=== PATIENT | male | born 1965 | race Caucasian/White ===

== ENCOUNTER 2016-02-22 07:30 | Inpatient (IN) | payer BC, MEDICARE ==
[~2016-02-22] VITALS: Ht 177.8 cm; Wt 88.0 kg
[~2016-02-22 07:30] MED LIST: AMAN100C12 PO; HC1C1.5 TP; LAMO150T PO; MUPI15CR TP; ONDA4 PO; SULF1TAB42 PO
[2016-02-22] MEDS ORDERED: DOCU250C91 PO (11:03)
[2016-02-22] MEDS ORDERED: SENN-30 PO (11:04)
[2016-02-22] MEDS ORDERED: ACET-784 PO (11:06)
[2016-02-22] MEDS ORDERED: DIPH25 PO (11:07)
[2016-02-22] MEDS ORDERED: MELA3TAB10 PO (11:08)
[2016-02-22] MEDS ORDERED: PERCT PO (11:09)
[2016-02-22] MEDS ORDERED: DOCU283E PR (11:15)
[2016-02-22] MEDS ORDERED: CeFAZolin 2 GM/DEXTROSE 50 ML IV ONE ×2 (11:30→11:33)
[2016-02-22] MEDS ORDERED: SODIUM CHLORIDE 0.9% 1,000 ML IV ONE (11:30)
[2016-02-22] MEDS ORDERED: RINGERS SOLUTION,LACTATED 1,000 ML IV ONE ×3 (11:30→13:00)
[2016-02-22] MEDS ORDERED: GUM MASTIC/STORAX/MSAL/ALCOHOL LIQUID 0.67 ML VIAL TP ONE (11:30)
[2016-02-22] MEDS ORDERED: MICROFIBRILLAR COLLAGEN 1 GM PACKAGE TP ONE (11:31)
[2016-02-22] MEDS ORDERED: SODIUM CHLORIDE 0.9% 0 ML IV ONE (11:31)
[2016-02-22] MEDS ORDERED: SODIUM CHLORIDE 0.9% 0 ML ONE (11:31)
[2016-02-22] MEDS ORDERED: BUPIVACAINE HCL/PF 0.5% 30 ML VIAL ONE (11:31)
[2016-02-22] MEDS ORDERED: MUPIROCIN CALCIUM 2% 22 GM OINTMENT ONE (12:21)
[2016-02-22 12:57] LABS: GLUCOSE,POINT OF CARE 99 MG/DL (70-110)
[2016-02-22] MEDS ORDERED: HYDROmorphone 2 MG/ML SYRINGE IVP PRN (13:30)
[2016-02-22] MEDS ORDERED: MEPERIDINE-PF 25 MG/ML SYRINGE IVP PRN (13:30)
[2016-02-22] MEDS ORDERED: FentaNYL CITRATE-PF 100 MCG/2 ML VIAL IVP PRN (13:30)
[2016-02-22] MEDS ORDERED: RINGERS SOLUTION,LACTATED 2,000 ML IV ONE (14:26)
[2016-02-22] MEDS ORDERED: BUPIVACAINE LIPOSOME/PF 1.3%-13.3MG/ML SUSPENSION 20 ML VIAL INJ ONE (15:00)
[2016-02-22] MEDS ORDERED: FentaNYL CITRATE-PF 250 MCG/5 ML VIAL IVP ONE (16:17)
[2016-02-22] MEDS ORDERED: FentaNYL CITRATE-PF 100 MCG/2 ML VIAL IVP ONE (16:17)
[2016-02-22] MEDS ORDERED: HYDROmorphone 2 MG/ML SYRINGE IVP ONE (16:17)
[2016-02-22] MEDS ORDERED: ACETAMINOPHEN 1000 MG/ISO-OSM 100 ML IV ONE (19:17)
[2016-02-22] MEDS: ACETAMINOPHEN 1000 MG/ISO-OSM 100 ML IV SCH (19:18)
[2016-02-22 21:31] VITALS: BP 100/71
[2016-02-23] VITALS (7 sets, daily range): BP systolic 113–141; BP diastolic 67–79
[2016-02-23] MEDS: ACETAMINOPHEN 1000 MG/ISO-OSM 100 ML IV SCH ×3 (00:50→13:12)
[2016-02-23] MEDS: OXYGEN THERAPY IH SCH ×5 (01:02→20:18)
[2016-02-23] MEDS: CeFAZolin 1 GM/DEXTROSE 50 ML IV SCH ×3 (02:00→17:37)
[2016-02-23] MEDS ORDERED: ONDANSETRON HCL 4 MG TABLET PO PRN (09:45)
[2016-02-23] MEDS: HYDROmorphone 2 MG/ML SYRINGE IVP PRN ×2 (12:01→20:19)
[2016-02-23 12:28] LABS: BASOPHILS % (AUTO) 0.2 % (0.0-2.0); EOSINOPHILS % (AUTO) 2.3 % (1.0-6.0); HEMATOCRIT 36.5 % (41-53); HEMOGLOBIN 12.1 g/dL (13.5-17.5); LYMPHOCYTES % (AUTO) 11.8 % (22.0-44.0); MEAN CORPUSCULAR HEMOGLOBIN 29.3 pg (26.0-34.0); MEAN CORPUSCULAR HGB CONC 33.2 G/dL (31.0-37.0); MEAN CORPUSCULAR VOLUME 88 fL (80-100); MONOCYTES # (AUTO) 0.2 K/uL (0.1-1.0); MONOCYTES % (AUTO) 2.7 % (2.0-9.0); NEUTROPHILS # (AUTO) 6.8 K/uL (1.8-7.7); PLATELET COUNT (AUTO) 258 K/uL (150-450); RED BLOOD CELL COUNT(AUTO) 4.14 MIL/uL (4.50-5.90); RED CELL DISTRIBUTION WIDTH 14.5 % (11.5-14.5); WHITE BLOOD COUNT (AUTO) 8.2 K/uL (4.5-11.0)
[2016-02-23] MEDS: AMANTADINE HCL 100 MG CAPSULE PO SCH (20:17)
[2016-02-23] MEDS: MELATONIN 3 MG TABLET PO SCH (20:17)
[2016-02-23] MEDS: DOCUSATE SODIUM 250 MG CAPSULE PO SCH (20:17)
[2016-02-23] MEDS: LamoTRIgine 100 MG TABLET PO SCH (20:18)
[2016-02-24] MEDS: HYDROmorphone 2 MG/ML SYRINGE IVP PRN ×2 (00:28→11:22)
[2016-02-24] MEDS: CeFAZolin 1 GM/DEXTROSE 50 ML IV SCH ×2 (02:16→09:17)
[2016-02-24 03:50] VITALS: BP 132/73
[2016-02-24 06:43] LABS: BASOPHILS # (AUTO) 0.01 K/uL (0.00-0.20); BASOPHILS % (AUTO) 0.1 % (0.0-2.0); EOSINOPHILS # (AUTO) 0.48 K/uL (0.00-0.70); EOSINOPHILS % (AUTO) 6.02 % (1.0-6.0); HEMATOCRIT 34.8 % (41-53); HEMOGLOBIN 11.6 g/dL (13.5-17.5); LYMPHOCYTES # (AUTO) 1.1 K/uL (1.0-4.8); LYMPHOCYTES % (AUTO) 13.2 % (22.0-44.0); MEAN CORPUSCULAR HEMOGLOBIN 29.4 pg (26.0-34.0); MEAN CORPUSCULAR HGB CONC 33.4 G/dL (31.0-37.0); MEAN CORPUSCULAR VOLUME 88 fL (80-100); MONOCYTES # (AUTO) 0.4 K/uL (0.1-1.0); MONOCYTES % (AUTO) 5.2 % (2.0-9.0); NEUTROPHILS % (AUTO) 75.5 % (40.0-70.0); PLATELET COUNT (AUTO) 254 K/uL (150-450); RED BLOOD CELL COUNT(AUTO) 3.95 MIL/uL (4.50-5.90); RED CELL DISTRIBUTION WIDTH 14.7 % (11.5-14.5)
[2016-02-24 07:30] VITALS: BP 117/76
[2016-02-24] MEDS: AMANTADINE HCL 100 MG CAPSULE PO SCH ×2 (07:46→20:33)
[2016-02-24] MEDS: DOCUSATE SODIUM 250 MG CAPSULE PO SCH ×2 (07:46→20:33)
[2016-02-24] MEDS: LamoTRIgine 100 MG TABLET PO SCH ×2 (07:47→20:33)
[2016-02-24] MEDS: OXYGEN THERAPY IH SCH ×3 (07:48→20:00)
[2016-02-24 11:30] VITALS: BP 121/72
[2016-02-24] MEDS: BISACODYL 10 MG RECTAL RECTAL SUPPOSITORY PR PRN (15:46)
[2016-02-24 15:58] VITALS: BP 119/76
[2016-02-24 19:59] VITALS: BP 120/79
[2016-02-24] MEDS: MELATONIN 3 MG TABLET PO SCH (20:32)
[2016-02-24 23:38] VITALS: BP 137/88
[2016-02-25 04:02] VITALS: BP 134/75
[2016-02-25] MEDS: OXYGEN THERAPY IH SCH ×2 (08:00)
[2016-02-25 08:02] VITALS: BP 125/78
[2016-02-25] MEDS: SULFAMETHOX/TRIMETH DS 800-160 MG/TABLET PO SCH ×3 (09:00→20:37)
[2016-02-25] MEDS: AMANTADINE HCL 100 MG CAPSULE PO SCH ×2 (09:31→20:37)
[2016-02-25] MEDS: DOCUSATE SODIUM 250 MG CAPSULE PO SCH ×2 (09:32→20:37)
[2016-02-25] MEDS: LamoTRIgine 100 MG TABLET PO SCH ×2 (09:33→20:38)
[2016-02-25 11:36] VITALS: BP 114/70
[2016-02-25 15:39] VITALS: BP 117/68
[2016-02-25 19:53] VITALS: BP 113/66
[2016-02-25] MEDS: MELATONIN 3 MG TABLET PO SCH (21:00)
[2016-02-25 23:33] VITALS: BP 103/59
[2016-02-26 04:14] VITALS: BP 111/61
[2016-02-26 07:30] VITALS: BP 101/73
[2016-02-26] MEDS: LamoTRIgine 100 MG TABLET PO SCH ×2 (09:07→20:14)
[2016-02-26] MEDS: DOCUSATE SODIUM 250 MG CAPSULE PO SCH ×2 (09:07→20:14)
[2016-02-26] MEDS: AMANTADINE HCL 100 MG CAPSULE PO SCH ×2 (09:07→20:14)
[2016-02-26] MEDS: SULFAMETHOX/TRIMETH DS 800-160 MG/TABLET PO SCH ×2 (09:07→20:14)
[2016-02-26 11:30] VITALS: BP 108/74
[2016-02-26] MEDS ORDERED: 0.9% SODIUM CHLORIDE 10 ML SYRINGE IVP PRN (13:15)
[2016-02-26 15:42] VITALS: BP 105/65
[2016-02-26 19:54] VITALS: BP 119/70
[2016-02-26] MEDS: MELATONIN 3 MG TABLET PO SCH (20:16)
[2016-02-26 23:30] VITALS: BP 99/63
[2016-02-27 03:39] VITALS: BP 112/55
[2016-02-27 08:00] VITALS: BP 115/74
[2016-02-27] MEDS: OXYGEN THERAPY IH SCH ×4 (08:00→20:00)
[2016-02-27] MEDS: SULFAMETHOX/TRIMETH DS 800-160 MG/TABLET PO SCH ×2 (09:17→20:50)
[2016-02-27] MEDS: LamoTRIgine 100 MG TABLET PO SCH ×2 (09:17→20:17)
[2016-02-27] MEDS: DOCUSATE SODIUM 250 MG CAPSULE PO SCH ×2 (09:17→20:17)
[2016-02-27] MEDS: AMANTADINE HCL 100 MG CAPSULE PO SCH ×2 (11:02→20:17)
[2016-02-27 12:05] VITALS: BP 119/74
[2016-02-27 15:51] VITALS: BP 115/72
[2016-02-27] MEDS: MELATONIN 3 MG TABLET PO SCH (20:17)
[2016-02-27 20:22] VITALS: BP 131/77
[2016-02-27 23:14] VITALS: BP 129/66
[2016-02-28 05:46] VITALS: BP 120/78
[2016-02-28 07:50] VITALS: BP 115/78
[2016-02-28] MEDS: OXYGEN THERAPY IH SCH ×2 (08:00)
[2016-02-28] MEDS: AMANTADINE HCL 100 MG CAPSULE PO SCH ×2 (10:55→19:32)
[2016-02-28] MEDS: SULFAMETHOX/TRIMETH DS 800-160 MG/TABLET PO SCH ×2 (10:56→19:31)
[2016-02-28] MEDS: DOCUSATE SODIUM 250 MG CAPSULE PO SCH ×2 (10:56→19:32)
[2016-02-28] MEDS: LamoTRIgine 100 MG TABLET PO SCH ×2 (10:56→19:31)
[2016-02-28 12:30] VITALS: BP 115/69
[2016-02-28 15:50] VITALS: BP 120/72
[2016-02-28] MEDS: MELATONIN 3 MG TABLET PO SCH (19:31)
[2016-02-28 19:45] VITALS: BP 107/72
[2016-02-28 23:10] VITALS: BP 109/66
[2016-02-29] VITALS (8 sets, daily range): BP systolic 101–110; BP diastolic 62–71
[2016-02-29] MEDS: OXYGEN THERAPY IH SCH ×2 (08:00)
[2016-02-29] MEDS: AMANTADINE HCL 100 MG CAPSULE PO SCH ×2 (08:06→21:16)
[2016-02-29] MEDS: SULFAMETHOX/TRIMETH DS 800-160 MG/TABLET PO SCH ×2 (08:06→21:16)
[2016-02-29] MEDS: LamoTRIgine 100 MG TABLET PO SCH ×2 (08:06→21:15)
[2016-02-29] MEDS: DOCUSATE SODIUM 250 MG CAPSULE PO SCH ×2 (08:06→21:14)
[2016-02-29] MEDS: MELATONIN 3 MG TABLET PO SCH (21:16)
[2016-03-01] MEDS ORDERED: FentaNYL CITRATE-PF 100 MCG/2 ML VIAL IVP ONE
[2016-03-01 04:00] VITALS: BP 120/75
[2016-03-01 10:00] VITALS: BP 116/74
[2016-03-01] MEDS: SULFAMETHOX/TRIMETH DS 800-160 MG/TABLET PO SCH ×2 (11:01→20:47)
[2016-03-01] MEDS: LamoTRIgine 100 MG TABLET PO SCH ×2 (11:01→20:48)
[2016-03-01] MEDS: AMANTADINE HCL 100 MG CAPSULE PO SCH ×2 (11:01→20:48)
[2016-03-01] MEDS: DOCUSATE SODIUM 250 MG CAPSULE PO SCH ×2 (11:01→20:47)
[2016-03-01 11:15] VITALS: BP 111/77
[2016-03-01 16:21] VITALS: BP 108/73
[2016-03-01 19:31] VITALS: BP 107/69
[2016-03-01] MEDS: OXYGEN THERAPY IH SCH ×2 (20:00)
[2016-03-01] MEDS: POTASSIUM CHL 20 MEQ/D5-0.45NS 1,000 ML IV SCH (20:47)
[2016-03-01] MEDS: MELATONIN 3 MG TABLET PO SCH (20:48)
[2016-03-01 23:38] VITALS: BP 109/60
[2016-03-02] MEDS ORDERED: PROPOFOL 1% 20 ML VIAL IVP ONE
[2016-03-02] MEDS ORDERED: LIDOCAINE HCL/PF 2% 5 ML VIAL INJ ONE
[2016-03-02 05:52] VITALS: BP 103/78
[2016-03-02] MEDS: POTASSIUM CHL 20 MEQ/D5-0.45NS 1,000 ML IV SCH ×2 (06:00→16:18)
[2016-03-02] MEDS ORDERED: RINGERS SOLUTION,LACTATED 1,000 ML IV ONE (06:30)
[2016-03-02 07:00] VITALS: BP 106/68
[2016-03-02] MEDS ORDERED: LIDOCAINE HCL/PF 1% 30 ML VIAL ONE (07:52)
[2016-03-02] MEDS ORDERED: BUPIVACAINE HCL/PF 0.5% 30 ML VIAL ONE (07:52)
[2016-03-02] MEDS ORDERED: SODIUM CL IRRIG SOLN BAG 3,000 ML IRRIG ONE (07:53)
[2016-03-02] MEDS ORDERED: LIDOCAINE HCL 1%/EPI 1:200,000/PF 10 ML VIAL ONE (07:54)
[2016-03-02] MEDS ORDERED: MINERAL OIL 10 ML VIAL TP ONE (07:57)
[2016-03-02] MEDS ORDERED: HYDROmorphone 2 MG/ML SYRINGE IVP PRN (10:00)
[2016-03-02] MEDS ORDERED: MEPERIDINE-PF 25 MG/ML SYRINGE IVP PRN (10:00)
[2016-03-02] MEDS ORDERED: OXYGEN THERAPY IH SCH (10:00)
[2016-03-02] MEDS ORDERED: FentaNYL CITRATE-PF 100 MCG/2 ML VIAL IVP PRN (10:00)
[2016-03-02 11:00] VITALS: BP 97/66
[2016-03-02] MEDS: OXYGEN THERAPY IH SCH ×3 (12:00→20:00)
[2016-03-02] MEDS: LamoTRIgine 100 MG TABLET PO SCH ×2 (13:14→20:26)
[2016-03-02] MEDS: SULFAMETHOX/TRIMETH DS 800-160 MG/TABLET PO SCH ×2 (13:14→20:26)
[2016-03-02] MEDS: DOCUSATE SODIUM 250 MG CAPSULE PO SCH ×2 (13:14→20:26)
[2016-03-02] MEDS: AMANTADINE HCL 100 MG CAPSULE PO SCH ×2 (13:15→20:25)
[2016-03-02 19:30] VITALS: BP 97/58
[2016-03-02] MEDS: MELATONIN 3 MG TABLET PO SCH (22:12)
[2016-03-02 23:35] VITALS: BP 111/69
[2016-03-03] MEDS: POTASSIUM CHL 20 MEQ/D5-0.45NS 1,000 ML IV SCH ×2 (02:00→09:28)
[2016-03-03 03:11] VITALS: BP 102/63
[2016-03-03] MEDS: OXYGEN THERAPY IH SCH ×2 (08:00)
[2016-03-03 08:28] VITALS: BP 99/58
[2016-03-03] MEDS: DOCUSATE SODIUM 283 MG/5 ML MINI-ENEMA PR SCH (09:58)
[2016-03-03] MEDS: LamoTRIgine 100 MG TABLET PO SCH ×2 (09:58→19:51)
[2016-03-03] MEDS: AMANTADINE HCL 100 MG CAPSULE PO SCH ×2 (09:58→19:51)
[2016-03-03] MEDS: SULFAMETHOX/TRIMETH DS 800-160 MG/TABLET PO SCH ×2 (09:58→19:51)
[2016-03-03] MEDS: DOCUSATE SODIUM 250 MG CAPSULE PO SCH ×2 (09:58→19:51)
[2016-03-03] MEDS ORDERED: SODIUM CHLORIDE 0.9% 250 ML IV ONE ×2 (10:00)
[2016-03-03 12:19] VITALS: BP 111/65
[2016-03-03 16:28] VITALS: BP 98/61
[2016-03-03] MEDS: MELATONIN 3 MG TABLET PO SCH (19:51)
[2016-03-03 20:22] VITALS: BP 111/68
[2016-03-03 23:12] VITALS: BP 106/64
[2016-03-04 03:45] VITALS: BP 110/70
[2016-03-04 07:32] VITALS: BP 123/72
[2016-03-04] MEDS: LamoTRIgine 100 MG TABLET PO SCH ×2 (07:56→19:57)
[2016-03-04] MEDS: DOCUSATE SODIUM 250 MG CAPSULE PO SCH ×2 (07:56→19:57)
[2016-03-04] MEDS: AMANTADINE HCL 100 MG CAPSULE PO SCH ×2 (07:56→19:57)
[2016-03-04] MEDS: SULFAMETHOX/TRIMETH DS 800-160 MG/TABLET PO SCH ×2 (07:57→19:57)
[2016-03-04] MEDS: DOCUSATE SODIUM 283 MG/5 ML MINI-ENEMA PR SCH (07:57)
[2016-03-04 11:17] VITALS: BP 106/68
[2016-03-04 15:33] VITALS: BP 111/66
[2016-03-04] MEDS: MELATONIN 3 MG TABLET PO SCH (19:57)
[2016-03-04 20:00] VITALS: BP 115/69
[2016-03-04 23:51] VITALS: BP 107/72
[2016-03-05 03:21] VITALS: BP 112/63
[2016-03-05 07:48] VITALS: BP 105/67
[2016-03-05] MEDS: DOCUSATE SODIUM 250 MG CAPSULE PO SCH ×2 (08:23→19:20)
[2016-03-05] MEDS: SULFAMETHOX/TRIMETH DS 800-160 MG/TABLET PO SCH ×2 (08:23→19:20)
[2016-03-05] MEDS: AMANTADINE HCL 100 MG CAPSULE PO SCH ×2 (08:25→19:20)
[2016-03-05] MEDS: DOCUSATE SODIUM 283 MG/5 ML MINI-ENEMA PR SCH (08:25)
[2016-03-05] MEDS: LamoTRIgine 100 MG TABLET PO SCH ×2 (08:25→19:20)
[2016-03-05 11:34] VITALS: BP 117/67
[2016-03-05 16:03] VITALS: BP 125/67
[2016-03-05 19:20] VITALS: BP 101/56
[2016-03-05] MEDS: MELATONIN 3 MG TABLET PO SCH (19:20)
[2016-03-05 23:34] VITALS: BP 101/56
[2016-03-06 03:20] VITALS: BP 110/74
[2016-03-06 06:05] LABS: ANION GAP 9 mmol/L (8-16); CALCIUM, TOTAL 8.8 mg/dL (8.8-10.5); CARBON DIOXIDE 27 mmol/L (22-29); CHLORIDE 103 mmol/L (98-107); GLOMERULAR FILTR. RATE CALC > 60 mL/min (>60); POTASSIUM 4.1 mmol/L (3.5-5.1); SODIUM SERUM 139 mmol/L (136-145); UREA NITROGEN, BLOOD 16 mg/dL (7-18)
[2016-03-06 06:26] LABS: BASOPHILS % (AUTO) 0.8 % (0.0-2.0); EOSINOPHILS % (AUTO) 7.1 % (1.0-6.0); HEMATOCRIT 35.7 % (41-53); HEMOGLOBIN 11.7 g/dL (13.5-17.5); LYMPHOCYTES # (AUTO) 1.8 K/uL (1.0-4.8); LYMPHOCYTES % (AUTO) 24.2 % (22.0-44.0); MEAN CORPUSCULAR HGB CONC 32.7 G/dL (31.0-37.0); MEAN CORPUSCULAR VOLUME 89 fL (80-100); MONOCYTES # (AUTO) 0.4 K/uL (0.1-1.0); MONOCYTES % (AUTO) 5.7 % (2.0-9.0); NEUTROPHILS # (AUTO) 4.7 K/uL (1.8-7.7); NEUTROPHILS % (AUTO) 62.2 % (40.0-70.0); PLATELET COUNT (AUTO) 301 K/uL (150-450); RED BLOOD CELL COUNT(AUTO) 4.02 MIL/uL (4.50-5.90); RED CELL DISTRIBUTION WIDTH 14.9 % (11.5-14.5); WHITE BLOOD COUNT (AUTO) 7.5 K/uL (4.5-11.0)
[2016-03-06 07:34] VITALS: BP 112/65
[2016-03-06] MEDS: DOCUSATE SODIUM 250 MG CAPSULE PO SCH ×2 (08:14→19:44)
[2016-03-06] MEDS: BISACODYL 10 MG RECTAL RECTAL SUPPOSITORY PR PRN (08:15)
[2016-03-06] MEDS: DOCUSATE SODIUM 283 MG/5 ML MINI-ENEMA PR SCH (08:15)
[2016-03-06] MEDS: LamoTRIgine 100 MG TABLET PO SCH ×2 (08:15→19:44)
[2016-03-06] MEDS: AMANTADINE HCL 100 MG CAPSULE PO SCH ×2 (08:15→19:44)
[2016-03-06 11:14] VITALS: BP 148/67
[2016-03-06 15:18] VITALS: BP 108/66
[2016-03-06 19:19] VITALS: BP 99/73
[2016-03-06] MEDS: MELATONIN 3 MG TABLET PO SCH (19:44)
[2016-03-07] VITALS (7 sets, daily range): BP systolic 97–119; BP diastolic 58–72
[2016-03-07] MEDS: DOCUSATE SODIUM 250 MG CAPSULE PO SCH ×2 (08:36→20:39)
[2016-03-07] MEDS: AMANTADINE HCL 100 MG CAPSULE PO SCH ×2 (08:36→20:39)
[2016-03-07] MEDS: LamoTRIgine 100 MG TABLET PO SCH ×2 (08:37→20:39)
[2016-03-07] MEDS: DOCUSATE SODIUM 283 MG/5 ML MINI-ENEMA PR SCH (08:55)
[2016-03-07] MEDS: MELATONIN 3 MG TABLET PO SCH (20:39)
[2016-03-07] MEDS: DiphenhydrAMINE HCL 25 MG CAPSULE PO PRN (23:05)
[2016-03-08 03:57] VITALS: BP 99/64
[2016-03-08 07:49] VITALS: BP 106/65
[2016-03-08] MEDS: AMANTADINE HCL 100 MG CAPSULE PO SCH ×2 (08:23→19:37)
[2016-03-08] MEDS: LamoTRIgine 100 MG TABLET PO SCH ×2 (08:23→19:37)
[2016-03-08] MEDS: DOCUSATE SODIUM 250 MG CAPSULE PO SCH ×2 (08:23→19:37)
[2016-03-08] MEDS: DOCUSATE SODIUM 283 MG/5 ML MINI-ENEMA PR SCH (08:24)
[2016-03-08 13:48] VITALS: BP 117/69
[2016-03-08 15:10] VITALS: BP 103/61
[2016-03-08 19:24] VITALS: BP 110/72
[2016-03-08] MEDS: MELATONIN 3 MG TABLET PO SCH (19:37)
[2016-03-08] MEDS: DiphenhydrAMINE HCL 25 MG CAPSULE PO PRN (19:56)
[2016-03-08] MEDS: POTASSIUM CHL 20 MEQ/D5-0.45NS 1,000 ML IV SCH (21:26)
[2016-03-08 23:39] VITALS: BP 103/68
[2016-03-09 04:03] VITALS: BP 106/69
[2016-03-09] MEDS: POTASSIUM CHL 20 MEQ/D5-0.45NS 1,000 ML IV SCH ×2 (06:26→23:00)
[2016-03-09] MEDS: LamoTRIgine 100 MG TABLET PO SCH ×2 (09:00→20:54)
[2016-03-09] MEDS: DOCUSATE SODIUM 250 MG CAPSULE PO SCH ×2 (09:00→20:53)
[2016-03-09] MEDS: AMANTADINE HCL 100 MG CAPSULE PO SCH ×2 (09:00→20:53)
[2016-03-09 09:01] VITALS: BP 106/60
[2016-03-09] MEDS ORDERED: RINGERS SOLUTION,LACTATED 1,000 ML IV ONE ×3 (09:36→12:11)
[2016-03-09] MEDS ORDERED: MINERAL OIL 10 ML VIAL TP ONE (10:13)
[2016-03-09] MEDS ORDERED: BACITRACIN 50,000 UNITS/VIAL ONE (10:18)
[2016-03-09] MEDS ORDERED: SODIUM CHLORIDE 0.9% 10 ML ONE (10:18)
[2016-03-09] MEDS ORDERED: SODIUM CHLORIDE 0.9% 1,000 ML IV ONE (10:21)
[2016-03-09] MEDS ORDERED: PROPOFOL 1% 20 ML VIAL IVP ONE (12:00)
[2016-03-09] MEDS ORDERED: FentaNYL CITRATE-PF 100 MCG/2 ML VIAL IVP ONE (12:00)
[2016-03-09] MEDS ORDERED: LIDOCAINE HCL/PF 2% 5 ML VIAL INJ ONE (12:00)
[2016-03-09] MEDS ORDERED: ONDANSETRON HCL 4 MG/2 ML VIAL IVP ONE (12:00)
[2016-03-09] MEDS ORDERED: EPHEDrine SULFATE 50 MG/ML VIAL IM ONE (12:00)
[2016-03-09] MEDS ORDERED: HYDROmorphone 2 MG/ML SYRINGE IVP ONE (12:00)
[2016-03-09] MEDS ORDERED: ACETAMINOPHEN 1000 MG/ISO-OSM 100 ML IV ONE (12:13)
[2016-03-09] MEDS ORDERED: MEPERIDINE-PF 25 MG/ML SYRINGE IVP PRN (13:00)
[2016-03-09] MEDS ORDERED: FentaNYL CITRATE-PF 100 MCG/2 ML VIAL IVP PRN (13:00)
[2016-03-09] MEDS ORDERED: HYDROmorphone 2 MG/ML SYRINGE IVP PRN (13:00)
[2016-03-09 13:46] VITALS: BP 113/72
[2016-03-09 15:18] VITALS: BP 100/65
[2016-03-09] MEDS: DOCUSATE SODIUM 283 MG/5 ML MINI-ENEMA PR SCH (16:00)
[2016-03-09] MEDS: OXYGEN THERAPY IH SCH (20:00)
[2016-03-09 20:16] VITALS: BP 127/77
[2016-03-09] MEDS: MELATONIN 3 MG TABLET PO SCH (21:00)
[2016-03-09 23:55] VITALS: BP 120/68
[2016-03-10 04:10] VITALS: BP 112/64
[2016-03-10 07:33] VITALS: BP 122/60
[2016-03-10 07:34] LABS: BASOPHILS % (AUTO) 0.4 % (0.0-2.0); EOSINOPHILS % (AUTO) 1.2 % (1.0-6.0); HEMATOCRIT 32.3 % (41-53); HEMOGLOBIN 10.8 g/dL (13.5-17.5); LYMPHOCYTES # (AUTO) 0.9 K/uL (1.0-4.8); LYMPHOCYTES % (AUTO) 20.3 % (22.0-44.0); MEAN CORPUSCULAR HEMOGLOBIN 29.4 pg (26.0-34.0); MEAN CORPUSCULAR HGB CONC 33.3 G/dL (31.0-37.0); MEAN CORPUSCULAR VOLUME 88 fL (80-100); MONOCYTES # (AUTO) 0.4 K/uL (0.1-1.0); MONOCYTES % (AUTO) 8.6 % (2.0-9.0); NEUTROPHILS % (AUTO) 69.5 % (40.0-70.0); PLATELET COUNT (AUTO) 215 K/uL (150-450); RED BLOOD CELL COUNT(AUTO) 3.67 MIL/uL (4.50-5.90); RED CELL DISTRIBUTION WIDTH 14.4 % (11.5-14.5); WHITE BLOOD COUNT (AUTO) 4.4 K/uL (4.5-11.0)
[2016-03-10] MEDS: LamoTRIgine 100 MG TABLET PO SCH ×2 (10:30→20:03)
[2016-03-10] MEDS: DOCUSATE SODIUM 283 MG/5 ML MINI-ENEMA PR SCH (10:30)
[2016-03-10] MEDS: AMANTADINE HCL 100 MG CAPSULE PO SCH ×2 (10:30→20:02)
[2016-03-10] MEDS: DOCUSATE SODIUM 250 MG CAPSULE PO SCH ×2 (10:30→20:03)
[2016-03-10] MEDS: OXYGEN THERAPY IH SCH ×2 (10:31→20:00)
[2016-03-10 11:27] VITALS: BP 114/74
[2016-03-10 15:26] VITALS: BP 114/51
[2016-03-10] MEDS: OxyCODONE HCL/ACETAMINOPHEN 5-325 MG TABLET PO PRN (15:54)
[2016-03-10 19:39] VITALS: BP 99/66
[2016-03-10] MEDS: MELATONIN 3 MG TABLET PO SCH (20:03)
[2016-03-10] MEDS: POTASSIUM CHL 20 MEQ/D5-0.45NS 1,000 ML IV SCH ×2 (22:05→22:06)
[2016-03-10 23:41] VITALS: BP 103/62
[2016-03-11 03:55] VITALS: BP 100/60
[2016-03-11 07:46] VITALS: BP 104/47
[2016-03-11] MEDS: OXYGEN THERAPY IH SCH ×2 (08:00→20:00)
[2016-03-11] MEDS: DOCUSATE SODIUM 250 MG CAPSULE PO SCH ×2 (09:06→21:06)
[2016-03-11] MEDS: LamoTRIgine 100 MG TABLET PO SCH ×2 (09:06→21:06)
[2016-03-11] MEDS: AMANTADINE HCL 100 MG CAPSULE PO SCH ×2 (09:06→21:06)
[2016-03-11] MEDS: DOCUSATE SODIUM 283 MG/5 ML MINI-ENEMA PR SCH (09:06)
[2016-03-11 11:46] VITALS: BP 102/59
[2016-03-11] MEDS: BISACODYL 10 MG RECTAL RECTAL SUPPOSITORY PR PRN (13:16)
[2016-03-11] MEDS: OxyCODONE HCL/ACETAMINOPHEN 5-325 MG TABLET PO PRN (15:11)
[2016-03-11] MEDS ORDERED: MUPIROCIN CALCIUM 2% 22 GM OINTMENT TP SCH (15:30)
[2016-03-11 16:28] VITALS: BP 105/65
[2016-03-11 20:05] VITALS: BP 96/60
[2016-03-11] MEDS: MELATONIN 3 MG TABLET PO SCH (21:06)
[2016-03-11 23:58] VITALS: BP 109/69
[2016-03-12 03:00] VITALS: BP 126/72
[2016-03-12] MEDS: OxyCODONE HCL/ACETAMINOPHEN 5-325 MG TABLET PO PRN (06:10)
[2016-03-12 07:00] VITALS: BP 96/63
[2016-03-12] MEDS: DOCUSATE SODIUM 250 MG CAPSULE PO SCH (08:27)
[2016-03-12] MEDS: AMANTADINE HCL 100 MG CAPSULE PO SCH (08:27)
[2016-03-12] MEDS: LamoTRIgine 100 MG TABLET PO SCH (08:28)
== END 2016-03-12 09:05 | disposition home or self-care (01) | DRG 464 ==
LOC: 4E 12:46 → 6N 02-29 13:21 → 4E 03-01 13:57
PROVIDERS: ADMIT Internal Medicine; ATTEND Internal Medicine
PROC: 0KB80ZZ Excision of Left Upper Arm Muscle, Open Approach (ICD-10-PCS; 2016-02-22)
PROC: 01N50ZZ Release Median Nerve, Open Approach (ICD-10-PCS; 2016-02-22)
PROC: 01N40ZZ Release Ulnar Nerve, Open Approach (ICD-10-PCS; 2016-02-22)
PROC: 0RNM0ZZ Release Left Elbow Joint, Open Approach (ICD-10-PCS; 2016-02-22)
PROC: 0LN60ZZ Release Left Lower Arm and Wrist Tendon, Open Approach (ICD-10-PCS; 2016-02-22)
PROC: 0L860ZZ Division of Left Lower Arm and Wrist Tendon, Open Approach (ICD-10-PCS; 2016-02-22)
PROC: 0RSM0ZZ Reposition Left Elbow Joint, Open Approach (ICD-10-PCS; 2016-02-22)
PROC: 0RSP0ZZ Reposition Left Wrist Joint, Open Approach (ICD-10-PCS; 2016-02-22)
PROC: 0JXH0ZZ Transfer Left Lower Arm Subcutaneous Tissue and Fascia, Open Approach (ICD-10-PCS; 2016-02-22)
PROC: 0KX Muscles, Transfer (ICD-10-PCS; 2016-02-22)
PROC: 0RSKXZZ Reposition Left Shoulder Joint, External Approach (ICD-10-PCS; 2016-02-22)
PROC: 01N60ZZ Release Radial Nerve, Open Approach (ICD-10-PCS; principal; 2016-02-22 13:30)
PROC: 0JBH0ZZ Excision of Left Lower Arm Subcutaneous Tissue and Fascia, Open Approach (ICD-10-PCS; 2016-03-02)
PROC: 0JXH0ZZ Transfer Left Lower Arm Subcutaneous Tissue and Fascia, Open Approach (ICD-10-PCS; 2016-03-02)
PROC: 0KBB0ZZ Excision of Left Lower Arm and Wrist Muscle, Open Approach (ICD-10-PCS; 2016-03-09)
DX: M24.542 Contracture, left hand (principal); I69.854 Hemiplegia and hemiparesis following other cerebrovascular disease affecting left non-dominant side; T86.821 Skin graft (allograft) (autograft) failure; E44.0 Moderate protein-calorie malnutrition; E88.09 Other disorders of plasma-protein metabolism, not elsewhere classified; G40.909 Epilepsy, unspecified, not intractable, without status epilepticus; K59.00 Constipation, unspecified; D64.9 Anemia, unspecified; M24.522 Contracture, left elbow; R00.0 Tachycardia, unspecified; Z96.643 Presence of artificial hip joint, bilateral; X58.XXXA Exposure to other specified factors, initial encounter; I95.9 Hypotension, unspecified; N18.9 Chronic kidney disease, unspecified; Z74.01 Bed confinement status; Z98.890 Other specified postprocedural states; Z91.048 Other nonmedicinal substance allergy status; Y93.89 Activity, other specified; Y99.8 Other external cause status; Z98.2 Presence of cerebrospinal fluid drainage device
CPT/HCPCS: 82962; 87081; 88304; 93005; 97001; 97003; 97110; 97116; 97163; 97168; 97530; 97535; C9290; J0131; J0690; J1170; J2405; J2704; J3010; J3480; J3490; J7030; J7050; J7120; Q0162